=== PATIENT | male | born 1945 | race Caucasian/White ===

== ENCOUNTER 2024-03-16 07:55 | Outpatient (CLI) | payer MEDICARE | END 2024-03-16 07:56 | disposition home or self-care (01) | LOC: CSHCP 07:55 | PROVIDERS: ATTEND Internal Medicine Critical Care Medicine | DX: J40 Bronchitis, not specified as acute or chronic (principal) | CPT/HCPCS: 94060; 94664; 94726; 94729; 94760 ==